=== PATIENT | female | born 1990 | race Two or more races ===

== ENCOUNTER 2024-01-28 19:38 | Emergency (ER) | payer BC ==
[~2024-01-28] VITALS: Ht 154.9 cm; Wt 59.9 kg
[2024-01-28] MEDS ORDERED: ONDANSETRON HCL 2 MG/ML VIAL IV ONE (20:30)
[2024-01-28] MEDS ORDERED: RINGERS SOLUTION,LACTATED 500 ML IV ONE (20:30)
[2024-01-28] MEDS ORDERED: FAMOTIDINE/PF 20 MG/2 ML VIAL IV ONE (20:30)
[2024-01-28 20:59] LABS: HEMATOCRIT 35.4 % (36.0-45.00); MEAN CELL VOLUME 80.4 fL (80.00-100.00); MEAN CORPUSCULAR HEMOGLOBIN 27.3 pg (27.00-32.0); MEAN CORPUSCULAR HGB CONC 33.9 g/dl (32.0-36.0); PLATELET COUNT 196 K/uL (150-450); RED CELL DISTRIBUTION WIDTH 14.1 % (11.5-14.5)
[2024-01-28 21:30] LABS: ALBUMIN 3.2 gm/dL (3.4-5.0); BILIRUBIN TOTAL 0.37 mg/dL (0.3-1.2); CALCIUM 8.7 mg/dL (8.5-10.1); CREATININE SERUM 0.96 mg/dL (0.55-1.02); GFR 66.93; GLOBULINA 3.7 G/DL (2.4-3.5); POTASSIUM 4.54 mEq/L (3.5-5.1); TOTAL PROTEIN 6.9 gm/dL (6.4-8.2)
[2024-01-28 21:35] LABS: INR 1.09; PARTIAL THROMBOPLASTIN TIME 22.6 SECONDS (22.0-34.0); PROTHROMBIN TIME 11.4 SECONDS (9.0-11.5)
[2024-01-28 22:18] LABS: URINE APPEARANCE Clear; URINE BILIRRUBIN Negative (NEGATIVE); URINE BLOOD NHT; URINE COLOR Yellow; URINE GLUCOSE Negative (NEGATIVE); URINE LEUKOCYTE Trace; URINE NITRATE Negative; URINE PROTEIN Negative (NEGATIVE); URINE UROBILINOGEN 0.2 E.U./dl
[2024-01-28 22:23] LABS: URINE BACTERIA 333.8 uL (0.0-1933); URINE EPITHELIAL CELLS 9.4 uL (0.0-38.8); URINE RBC 5.8 uL (0.0-20.8); URINE WBC 17.1 uL (0.0-23.2)
== END 2024-01-28 22:41 ==
LOC: ER 19:38
PROVIDERS: General Practice
DX: R53.81 Other malaise (principal); R55 Syncope and collapse; Z20.822 Contact with and (suspected) exposure to COVID-19; Z88.0 Allergy status to penicillin